=== PATIENT | female | born 1965 | race Caucasian/White ===

== ENCOUNTER 2024-04-15 09:24 | Outpatient (CLI) | payer BC, SELFPAY | END 2024-04-15 09:25 | disposition home or self-care (01) | PROVIDERS: PCP Physician Assistant Medical; Visit Provider Obstetrics & Gynecology | DX: N95.0 Postmenopausal bleeding (principal) | CPT/HCPCS: 84443; 87086 ==

== ENCOUNTER 2024-05-05 08:46 | Outpatient (CLI) | payer BC, SELFPAY | END 2024-05-05 08:47 | disposition home or self-care (01) | LOC: NFLDREF 05-07 01:43 | PROVIDERS: PCP Physician Assistant Medical; Referring Provider Physician Assistant Medical; Visit Provider Obstetrics & Gynecology | DX: R31.29 Other microscopic hematuria (principal) | CPT/HCPCS: 87086 ==

== ENCOUNTER 2024-05-12 15:44 | Outpatient (CLI) | payer BC, SELFPAY | END 2024-05-12 15:45 | disposition home or self-care (01) | LOC: NFLDREF 15:46 | PROVIDERS: PCP Physician Assistant Medical; Visit Provider Family Medicine | DX: Z01.818 Encounter for other preprocedural examination (principal) | CPT/HCPCS: 80048 ==

== ENCOUNTER 2024-05-18 07:01 | Day surgery (SDC) | payer BC, SELFPAY ==
[2024-05-18 07:10] VITALS: BP 118/75; PULSE 72; RESP 16; TEMP 36.7; O2SAT 95; BMI 34.6
[2024-05-18] MEDS: LACTATED RINGERS 1000 ML 1,000 ML 100 ML IV (07:30)
[2024-05-18 07:37] LABS: Hemoglobin* 13.9 gm/dL (12.0-16.0)
[2024-05-18] MEDS: INSULIN REGULAR, HUMAN 100 UNIT/ML VIAL 6 UNIT SUBCUT (07:40)
--- NOTE | 2024-05-18 07:41 | W.PM.H&PU ---
History & Physical Update History & Physical Update H&P Reviewed and patient assessed: No changes noted
[2024-05-18] MEDS: SODIUM CHLORIDE 0.9 % (FLUSH) 10 ML SYRINGE IVF (07:45)
[2024-05-18] MEDS: BUPIVACAINE 0.5% 30 ML INJECTION (08:50)
[2024-05-18] MEDS: KETOROLAC 15 MG/ML inj IVP (08:53)
[2024-05-18 09:05] VITALS: BP 132/76; PULSE 79; RESP 16; TEMP 36.2; O2SAT 96
--- NOTE | 2024-05-18 09:05 | W.PM.GYNPROC ---
Procedure Note Date of procedure: 05/18/24 Will [facility] bill your pro fee for this procedure?: Yes Pre-op diagnosis: Postmenopausal bleeding-endometrial polyp Post-op diagnosis: Postmenopausal bleeding-endometrial polyp Procedure: Hysteroscopy, dilation and curettage Anesthesia: MAC Complications: None Surgeon: Dana Mondragon MD Estimated blood loss (mL): 5 IV fluids (mL): 400 Urine Output (mL): 200 Pathology: specimen obtained, sent to pathology (endometrial curettings) Condition: stable Disposition: same day Findings: Findings: Normal external female genitalia. Atrophy changes of introitus. Speculum exam: Grossly normal cervix, no lesions no abnormal discharge. Intrauterine cavity: Bilateral cornual openings seen, polypoid lesion on the posterior uterine wall. Otherwise, atrophic endometrium. Procedure Description: Patient was taken to the OR were MAC anesthesia was administered without difficulty. She was placed in the dorsal lithotomy position with Avtar type stirrups. Patient was then prepared and draped in the normal sterile fashion. A bivalved speculum was inserted in the posterior aspect of the vagina. 0.5% Marcaine was injected at 2 and 11 o'clock a total of about 6mL utilized. A single-tooth tenaculum was used to grasp the anterior lip of the cervix. The uterus was carefully sounded to 9 cm. The cervical os was sequentially dilated to accommodate the 5 mm TrueClear hysteroscope using Hegar dilators. A 5 mm 30 degree TrueClear hysteroscope was introduced under direct visualization, and the uterus was distended with normal saline. Findings as above. Soft tissue incisor blade from TrueClear hysteroscope system was introduced under direct visualization and endometrial curettings performed with removal of polypoid lesion. Hysteroscope removed under direct visualization. Tenaculum was removed from the cervix and good hemostasis was noted at puncture sites. Patient tolerated the procedure well. Instrument and sponge counts were correct x2. The patient was awakened from MAC anesthesia and taken to the recovery room in a stable condition. The patient will go home after recovering from anesthesia and meeting all the criteria for discharge. She was given instruction regarding follow-up visit in 2 weeks at [facility] and instructions for pain medication. Fluid deficit: 170mL
--- NOTE | 2024-05-18 09:09 | W.ANESCHARGE ---
Anesthesia Charges Start Date/Time Anesthesia Start Date: 05/18/24 Anesthesia Start Time: 08:28 Stop Date/Time Anesthesia Stop Date: 05/18/24 Anesthesia Stop Time: 09:01 Coding CPT Codes CPT Codes: ANESTH HYSTEROSCOPE/GRAPH - 24481 ([id number]) P2 - PATIENT W/MILD SYST DISEASE, QK - RETAIL PRESENTATION SPECIALIST 2-4 CNCRNT ANES PROC, QX - PHLEBOTOMY DIRECTOR SVC W/ MD MED DIRECTION
[2024-05-18 09:15] VITALS: BP 119/57; PULSE 72; RESP 14; O2SAT 98
[2024-05-18 09:30] VITALS: BP 134/76; PULSE 67; RESP 16; O2SAT 98
[2024-05-18 09:45] VITALS: BP 138/100; PULSE 68; RESP 16; TEMP 36.4; O2SAT 98
[2024-05-18 10:00] VITALS: BP 147/105; PULSE 68; RESP 16; O2SAT 95
--- NOTE | 2024-05-18 10:04 | W.ANESCHARGE ---
Anesthesia Charges Start Date/Time Anesthesia Start Date: 05/18/24 Anesthesia Start Time: 08:28 Stop Date/Time Anesthesia Stop Date: 05/18/24 Anesthesia Stop Time: 09:01 Coding CPT Codes CPT Codes: ANESTH HYSTEROSCOPE/GRAPH - 25052 ([id number]) QX - PAINTING AND COATING WORKER SVC W/ MD MED DIRECTION, QK - MANAGER [employer] 2-4 CNCRNT ANES PROC, P2 - PATIENT W/MILD SYST DISEASE
== END 2024-05-18 10:15 | disposition home or self-care (01) ==
PROVIDERS: PCP Physician Assistant Medical; Visit Provider Obstetrics & Gynecology
PROC: 0UDB8ZZ Extraction of Endometrium, Via Natural or Artificial Opening Endoscopic (ICD-10-PCS; CPT 58558; principal; 2024-05-18 08:15)
DX: N95.0 Postmenopausal bleeding (principal); N84.0 Polyp of corpus uteri; E11.9 Type 2 diabetes mellitus without complications; Z79.4 Long term (current) use of insulin
CPT/HCPCS: 58558; 00952; 36415; 82962; 85018; 88305; C1782; J0665; J1815; J1885; J2250; J2405; J2704; J3490; J7120